=== PATIENT | male | born 1975 | race Caucasian/White ===

== ENCOUNTER 2017-02-01 20:19 | Emergency (ER) | payer BC ==
[~2017-02-01] VITALS: Ht 190.5 cm; Wt 93.0 kg
[~2017-02-01 20:19] MED LIST: AUGMENTIN 875 M1 TAB PO
== END 2017-02-01 20:44 | disposition home or self-care (01) ==
LOC: ED 20:19
DX: K40.90 Unilateral inguinal hernia, without obstruction or gangrene, not specified as recurrent (principal)

== ENCOUNTER 2021-10-10 18:15 | Emergency (ER) | payer BC ==
[~2021-10-10] VITALS: Ht 187.9 cm; Wt 90.7 kg
== END 2021-10-10 18:50 | disposition home or self-care (01) ==
LOC: ED 18:15
DX: T81.30XA Disruption of wound, unspecified, initial encounter (principal); Y83.8 Other surgical procedures as the cause of abnormal reaction of the patient, or of later complication, without mention of misadventure at the time of the procedure; Y92.89 Other specified places as the place of occurrence of the external cause